=== PATIENT | male | born 1930 | race Caucasian/White ===

== ENCOUNTER → 2016-08-17 | Outpatient (CLI) | payer MEDICARE ==
[~2016-08-17] MED LIST: ASCO25TA PO; ASPI81TA45 PO; CALC25TA PO; CALC600T7 PO; CLOP75TA2 PO; COUM2.5T11 PO; DOCU10CA PO; FELO10TA PO; FERG1TAB PO; HYDR-4267 PO; LATA5OPD OU; LEVA500T PO; METO25TA74 PO; MILKSUS PO; MIRA3350 PO; PREV15CA PO; PROA1AER INH; SENO8.6T2 PO; SERO1TAB3 PO; SIMV20TA2 PO; TERA2CAP3 PO; TUMS500C PO; TYLE325T5 PO
[2016-08-17 07:59] LABS: MEAN CORPUSCULAR HEMOGLOBIN 28.7 pg (27.0-33.0); MEAN CORPUSCULAR VOLUME 89.6 fl (80.0-96.0); RED CELL DISTRIBUTION WIDTH 14.2 % (11.5-14.5); WHITE BLOOD COUNT 7.3 K/mm3 (4.0-10.0)
[2016-08-17 08:24] LABS: ALBUMIN 3.6 GM/DL (3.2-5.2); ALBUMIN/GLOBULIN RATIO 1.06 (1.00-1.93); ALKALINE PHOSPHATASE 56 U/L (45-117); ALT/SGPT 16 U/L (12-78); ANION GAP 10 MEQ/L (8-16); AST/SGOT 13 U/L (15-37); BILIRUBIN,TOTAL 0.2 MG/DL (0.2-1.0); BLOOD UREA NITROGEN 13 MG/DL (7-18); CALCIUM LEVEL 8.6 MG/DL (8.8-10.2); CARBON DIOXIDE LEVEL 26 MEQ/L (21-32); CHLORIDE LEVEL 104 MEQ/L (98-107); CREATININE FOR GFR 0.96 MG/DL (0.70-1.30); GLOMERULAR FILTRATION RATE > 60.0 (>35); GLUCOSE, FASTING 125 MG/DL (83-110); POTASSIUM SERUM 3.7 MEQ/L (3.5-5.1); SODIUM LEVEL 140 MEQ/L (136-145)
== END ==
LOC: M LAB 07:29
PROVIDERS: ATTEND Internal Medicine
DX: I10 Essential (primary) hypertension (principal); K21.9 Gastro-esophageal reflux disease without esophagitis

== ENCOUNTER → 2017-02-16 | Outpatient (CLI) | payer MEDICARE ==
[~2017-02-16] MED LIST changes: -COUM2.5T11 PO; +COUM2.5T17 PO; +HYDR-3911 PO; -HYDR-4267 PO; +LEVA1TAB2 PO; -LEVA500T PO; +METO1TAB32 PO; -METO25TA74 PO; -PROA1AER INH; +PROAAER10 INH; -SENO8.6T2 PO; +SENO8.6T5 PO
[2017-02-16 07:10] LABS: MEAN CORPUSCULAR HGB CONC 31.7 g/dl (32.0-36.5); MEAN CORPUSCULAR VOLUME 85.2 fl (80.0-96.0); RED CELL DISTRIBUTION WIDTH 14.8 % (11.5-14.5)
[2017-02-16 07:35] LABS: ALBUMIN 3.1 GM/DL (3.2-5.2); ALBUMIN/GLOBULIN RATIO 0.79 (1.00-1.93); ALKALINE PHOSPHATASE 54 U/L (45-117); ALT/SGPT 13 U/L (12-78); ANION GAP 13 MEQ/L (8-16); AST/SGOT 11 U/L (15-37); BILIRUBIN,TOTAL 0.3 MG/DL (0.2-1.0); BLOOD UREA NITROGEN 10 MG/DL (7-18); CALCIUM LEVEL 8.3 MG/DL (8.8-10.2); CARBON DIOXIDE LEVEL 22 MEQ/L (21-32); CHLORIDE LEVEL 106 MEQ/L (98-107); GLOMERULAR FILTRATION RATE > 60.0 (>35); GLUCOSE, FASTING 84 MG/DL (83-110); SODIUM LEVEL 141 MEQ/L (136-145)
== END ==
LOC: M LAB 06:39
PROVIDERS: ATTEND Internal Medicine
DX: Z79.899 Other long term (current) drug therapy (principal); I10 Essential (primary) hypertension

== ENCOUNTER → 2017-05-12 | Outpatient (REF) | payer MEDICARE ==
[2017-05-12 10:24] LABS: MEAN CORPUSCULAR HEMOGLOBIN 29.6 pg (27.0-33.0); MEAN CORPUSCULAR HGB CONC 33.2 g/dl (32.0-36.5); PLATELET COUNT, AUTOMATED 257 10^3/uL (150-450); RETIC HEMOGLOBIN EQUIVALENT 37.4 pg (24-36); RETICULOCYTE % 1.2 % (0.5-1.5); WHITE BLOOD COUNT 8.5 10^3/uL (4.0-10.0)
[2017-05-12 10:51] LABS: PERCENT SATURATION 22.8 % (19.7-50.0)
[2017-05-12 11:28] LABS: FOLATE 10.7 NG/ML
== END ==
LOC: M SFHCPLAZ 08:29
PROVIDERS: ATTEND Internal Medicine
DX: D64.9 Anemia, unspecified (principal)

== ENCOUNTER → 2017-09-08 | Outpatient (REF) | payer MEDICARE ==
[2017-09-08 12:16] LABS: HEMOGLOBIN 13.2 g/dl (14.0-18.0); MEAN CORPUSCULAR HEMOGLOBIN 31.6 pg (27.0-33.0); MEAN CORPUSCULAR VOLUME 95.7 fl (80.0-96.0); PLATELET COUNT, AUTOMATED 278 10^3/uL (150-450); RED BLOOD COUNT 4.18 10^6/uL (4.30-6.10); RED CELL DISTRIBUTION WIDTH 14.6 % (11.5-14.5); WHITE BLOOD COUNT 8.5 10^3/uL (4.0-10.0)
[2017-09-08 12:37] LABS: ALBUMIN 3.8 GM/DL (3.2-5.2); ALBUMIN/GLOBULIN RATIO 1.12 (1.00-1.93); ALKALINE PHOSPHATASE 54 U/L (45-117); ALT/SGPT 14 U/L (12-78); ANION GAP 8 MEQ/L (8-16); AST/SGOT 12 U/L (7-37); BILIRUBIN,TOTAL 0.5 MG/DL (0.2-1.0); BLOOD UREA NITROGEN 16 MG/DL (7-18); CALCIUM LEVEL 9.3 MG/DL (8.8-10.2); CARBON DIOXIDE LEVEL 26 MEQ/L (21-32); CHLORIDE LEVEL 106 MEQ/L (98-107); CHOLESTEROL LEVEL 111 MG/DL (<200); CHOLESTEROL RISK RATIO 3.083 (<5); CREATININE FOR GFR 0.94 MG/DL (0.70-1.30); GLOMERULAR FILTRATION RATE > 60.0 (>35); GLUCOSE, FASTING 84 MG/DL (70-100); HDL CHOLESTEROL 36 MG/DL (>40); LDL CHOLESTEROL 49.4 MG/DL (<100); MAGNESIUM LEVEL 2.2 MG/DL (1.8-2.4); NON-HDL-C 75 MG/DL; POTASSIUM SERUM 4.1 MEQ/L (3.5-5.1); SODIUM LEVEL 140 MEQ/L (136-145); TOTAL PROTEIN 7.2 GM/DL (6.4-8.2); TRIGLYCERIDES LEVEL 128 MG/DL (<150)
== END ==
LOC: M SFHCPLAZ 08:21
DX: D64.9 Anemia, unspecified (principal); I10 Essential (primary) hypertension; E78.00 Pure hypercholesterolemia, unspecified
CPT/HCPCS: 83735

== ENCOUNTER → 2018-01-13 | Outpatient (REF) | payer MEDICARE ==
[2018-01-13 12:24] LABS: HEMATOCRIT 38.5 % (42.0-52.0); HEMOGLOBIN 13.1 g/dl (13.5-17.5); MEAN CORPUSCULAR HEMOGLOBIN 31.7 pg (27.0-33.0); MEAN CORPUSCULAR VOLUME 93.2 fl (80.0-96.0); PLATELET COUNT, AUTOMATED 313 10^3/uL (150-450); RED BLOOD COUNT 4.13 10^6/uL (4.30-6.10); RED CELL DISTRIBUTION WIDTH 14.6 % (11.5-14.5); WHITE BLOOD COUNT 7.1 10^3/uL (4.0-10.0)
== END ==
LOC: M SFHCPLAZ 08:28
DX: D64.9 Anemia, unspecified (principal)
CPT/HCPCS: 85027